=== PATIENT | male | born 1970 | race Caucasian/White ===

== ENCOUNTER 2021-05-18 09:09 | Emergency (ER) | payer OTHER ==
[~2021-05-18] VITALS: Ht 175.3 cm; Wt 95.5 kg
[2021-05-18] MEDS ORDERED: PROAIR HFA0.09 MG/AC IH (09:28)
[2021-05-18] MEDS ORDERED: ADVAIR DISKUS1 DSK IH (09:29)
[2021-05-18] MEDS ORDERED: NASACORT A55 MCG/Act NS (09:29)
[2021-05-18] MEDS ORDERED: CLEOCIN HCL150 M1 PO (09:29)
[2021-05-18] MEDS ORDERED: IBU600 MG PO (09:30)
[2021-05-18 10:35] LABS: BASO # 0.04 K/mm3 (0.02-0.10); EOS # 0.49 K/mm3 (0.04-0.40); HEMATOCRIT 42.8 % (42.0-52.0); HEMOGLOBIN 13.4 g/dL (13.5-18.0); LYMPH# 1.27 K/mm3 (1.50-4.00); MEAN CELL VOLUME 82 fl (78-100); MEAN CORPUSCULAR HEMOGLOBIN 26 pg (27-31); MEAN CORPUSCULAR HGB CONC 31 g/dL (33-37); MEAN PLATELET VOLUME 9.1 fl (7.4-10.4); MONO # 0.51 K/mm3 (0.20-0.80); NEU # 3.11 K/mm3 (1.40-6.50); PLATELET COUNT 271 K/mm3 (130-400); RED BLOOD COUNT 5.22 M/mm3 (4.20-5.60); RED CELL DISTRIBUTION WIDTH 15.2 % (11.5-14.5); WHITE BLOOD COUNT 5.4 K/mm3 (4.8-10.8)
[2021-05-18 10:48] LABS: PROTHROMBIN TIME 9.9 SECONDS (9.0-12.0)
[2021-05-18 10:55] LABS: ALBUMIN 4.3 g/dL (3.5-5.0); POTASSIUM 4.6 mmol/L (3.5-5.1); SODIUM 139 mmol/L (136-145)
[2021-05-18 10:56] LABS: CALCIUM 9.8 mg/dL (8.3-10.5)
[2021-05-18 10:57] LABS: GLUCOSE 97 mg/dL (75-110)
[2021-05-18 10:58] LABS: TOTAL PROTEIN 7.7 g/dL (6.4-8.3)
[2021-05-18 10:59] LABS: CARBON DIOXIDE 24 mmol/L (22-29); TOTAL BILIRUBIN 0.5 mg/dL (0.2-1.2)
[2021-05-18 11:03] LABS: AST-SGOT 23 U/L (5-34)
[2021-05-18 11:04] LABS: ALT/SGPT 19 U/L (0-55)
[2021-05-18 11:10] LABS: TROPONIN-I < 0.03 ng/mL (<0.030)
[2021-05-18] MEDS ORDERED: VALACYCLOVIR1 GM PO (11:15)
[2021-05-18] MEDS ORDERED: ARTIFICIAL EYE3.5 GM OP (11:15)
[2021-05-18] MEDS ORDERED: PREDNISONE20 M1 PO (11:15)
[2021-05-18] MEDS ORDERED: ARTIFICIAL TEAR15 M7 OP (11:16)
[2021-05-18 11:40] VITALS: BP 106/68
== END 2021-05-18 11:40 | disposition home or self-care (01) ==
LOC: ED 09:09
PROVIDERS: Nurse Practitioner Family
DX: G51.0 Bell's palsy (principal); J45.909 Unspecified asthma, uncomplicated; Z79.899 Other long term (current) drug therapy